=== PATIENT | male | born 1985 | race Hispanic/Latino ===

== ENCOUNTER → 2023-07-01 | Outpatient (CLI) | payer BC | END | disposition home or self-care (01) | LOC: RAH 11:16 | PROVIDERS: ATTEND Internal Medicine | DX: S99.911A Unspecified injury of right ankle, initial encounter (principal); M77.31 Calcaneal spur, right foot; M19.071 Primary osteoarthritis, right ankle and foot; X58.XXXA Exposure to other specified factors, initial encounter; Y93.89 Activity, other specified; Y92.89 Other specified places as the place of occurrence of the external cause; Y99.8 Other external cause status | CPT/HCPCS: 73610 ==